=== PATIENT | female | born 1985 | race Caucasian/White ===

== ENCOUNTER → 2019-09-08 | Outpatient (CLI) | payer MEDICAID ==
--- NOTE | 2019-09-08 09:36 | RAD ---
EXAM DESCRIPTION: Hand,Right 3 Views CLINICAL HISTORY: PAIN IN RIGHT HAND COMPARISON: None Available. TECHNIQUE: AP, LATERAL, AND OBLIQUE FINDINGS: The visualized bones appear well mineralized. No acute fracture or dislocation. Minimal osteoarthritis of the first carpometacarpal joint. Intracortical cyst is noted in the head of the third metacarpal. The soft tissues appear grossly unremarkable. IMPRESSION: Minimal osteoarthritis of the first carpometacarpal joint. Intracortical cyst is noted in the head of the third metacarpal. Electronically signed by: Monica Man MD 09/08/2019 9:35 AM CDT
== END ==
LOC: RAD 09:01
PROVIDERS: ATTEND Orthopaedic Surgery
DX: M18.11 Unilateral primary osteoarthritis of first carpometacarpal joint, right hand (principal); M85.641 Other cyst of bone, right hand

== ENCOUNTER 2019-09-28 05:15 | Day surgery (SDC) | payer MEDICAID, OTHER ==
[2019-09-28] MEDS ORDERED: SODIUM CHL 0.9% 100ML MINI-BAG 100 ML IVPB ONE (06:09)
[2019-09-28] MEDS ORDERED: LACTATED RINGERS 1,000 ML ONE (06:10)
[2019-09-28] MEDS ORDERED: ceFAZolin SODIUM 1 GM VIAL ONE ×2 (06:10→07:58)
[2019-09-28] MEDS ORDERED: LIDOCAINE 1% 10 ML VIAL INJ ONE ×2 (07:00→07:58)
[2019-09-28] MEDS ORDERED: PROPOFOL 200 MG/20 ML VIAL IV ONE (07:00)
[2019-09-28] MEDS ORDERED: fentaNYL CITRATE INJ 50 MCG/ML 2 ML AMP ONE (07:56)
[2019-09-28] MEDS ORDERED: MIDAZOLAM INJ 5 MG/5 ML VIAL ONE (07:57)
[2019-09-28] MEDS ORDERED: VANCOMYCIN HCL INJ 1,000 MG VIAL IVPB ONE (07:58)
[2019-09-28] MEDS ORDERED: BUPIVACAINE 0.25% INJ 30 ML VIAL INJ ONE (07:58)
[2019-09-28] MEDS ORDERED: KETAMINE HCL 100 MG/ML VIAL ONE (07:59)
[2019-09-28] MEDS ORDERED: ONDANSETRON INJ 4 MG/2 ML VIAL ONE (09:17)
[2019-09-28] MEDS ORDERED: HYDROcodone 5MG/APAP 325MG 1 EA TAB ONE (09:34)
[2019-09-28 10:13] VITALS: BP 123/81; TEMP 97.1; O2SAT 99
--- NOTE | 2019-10-05 09:47 | OP ---
DATE OF PROCEDURE: 09/28/19 PREOPERATIVE DIAGNOSIS: 1. Right carpal tunnel syndrome. POSTOPERATIVE DIAGNOSIS: 1. Right carpal tunnel syndrome. PROCEDURE: 1. Right carpal tunnel release. SURGEON: Manuel Woo MD. PARAPROFESSIONAL EDUCATION ASSISTANT: Orion Arguelles CST, SA-C. ANESTHESIA: Local with sedation. COMPLICATIONS: None. FINDINGS: Thickening of the transverse carpal ligament with narrowing of the median nerve across the carpal tunnel. INDICATION: Stephanie has a history of symptoms consistent with carpal tunnel syndrome. Because of her ongoing symptoms, she has requested operative intervention. After discussing the risks, benefits and alternatives to that, the patient has given informed consent for carpal tunnel release. PROCEDURE: The patient was brought to the Operating Room and placed in the supine position. Sedation was administered and local anesthetic was injected into the operative area under sterile conditions. After the injection of anesthetic, the arm was sterilely prepped and draped. A longitudinal incision was made directly overlying the transverse carpal ligament and blunt dissection was carried down to the ligament. The transverse carpal ligament was sharply transected along its length and a Lovell elevator was used to ensure complete release of the ligament. Once release had been confirmed, the wound was thoroughly irrigated and the wound was closed with Nylon suture. A sterile dressing was placed and the patient was taken to the Day Surgery Unit. POSTOPERATIVE PLAN: The patient has been encouraged to do range of motion of the digits and will followup with us in two days. #[id number] MTDD
== END 2019-09-28 10:10 | disposition home or self-care (01) ==
LOC: AMB 05:15
PROVIDERS: ATTEND Orthopaedic Surgery
DX: G56.01 Carpal tunnel syndrome, right upper limb (principal); F41.9 Anxiety disorder, unspecified; Z79.899 Other long term (current) drug therapy; Z88.8 Allergy status to other drugs, medicaments and biological substances
CPT/HCPCS: 01810; 64721; 80307; J0690; J2250; J2405; J3010; J3370; J3490; J7050; J7120